=== PATIENT | female | born 1985 | race Caucasian/White ===

== ENCOUNTER 2020-02-14 09:14 | Emergency (ER) | payer MEDICARE, MEDICAID, SELFPAY ==
[2020-02-14 09:41] VITALS: BP 103/56; PULSE 85; RESP 18; TEMP 36.7; O2SAT 98; BMI 27.4
--- NOTE | 2020-02-14 10:16 | ED_ITS ---
HPI - URI/Sore Throat General Chief Complaint: Ear Problems Stated Complaint: fever,sinus pain and ear pain Time Seen by Provider: 02/14/20 10:06 Source: patient Mode of arrival: ambulatory History of Present Illness HPI Narrative: 34-year-old Female with no significant past medical history presenting to the ED complaining of low-grade temperature 99.9? last night with left-sided ear pain, sinus pressure, myalgias and sore throat. Admits was tested for COVID-19 on January 10 and negative. Denies cough, chills, CP/SOB, abdominal pain, diarrhea, recent travel, sick contacts, hearing loss or drainage from your MD elicited complaint: fever, sore throat and sinus pain Related Data Allergies Allergy/AdvReac Type Severity Reaction Status Date / Time amoxicillin Allergy Anaphylaxis Verified 02/14/20 09:44 Penicillins Allergy Anaphylaxis Verified 02/14/20 09:44 Review of Systems Review of Systems: Constitutional: No Weight loss, + Fever, No Chills ENT/Mouth: + Ear Pain, + Nasal Congestion, + Sinus Pain, No Hoarseness, +No sore throat, No Rhinorrhea, No Swallowing Difficulty Cardiovascular: No Chest Pain, No SOB Respiratory: No Cough, No Sputum, No Wheezing Gastrointestinal: No Nausea, No Vomiting, No Diarrhea, No Constipation, No Abdominal pain Musculoskeletal: No joint pain, + Myalgias, No Joint Swelling Skin: No Skin Lesions, No rash Yes all other systems are reviewed and are negative [facility] Past Medical History Attestation statement: The following information was validated with the patient. Medical History (Updated 02/14/20 @ 10:15 by FAMILIA Jean) No known health problems No known health problems Social History Social History Advance Directives: No Advance Directives Information Provided: No Physical Exam Vital Signs: Vital Signs: Last Vital Signs Temp 98.1 F 02/14/20 09:41 Pulse 85 02/14/20 09:41 Resp 18 02/14/20 09:41 BP 103/56 L 02/14/20 09:41 Pulse Ox 98 02/14/20 09:41 Body Mass Index 27.4 Const: General: cooperative and healthy appearing Orientation/consciousness: patient oriented x3 Limitations: no limitations HENMT: Head: Yes normal to inspection and Yes normocephalic Ears: hearing grossly normal bilaterally, external ears normal, TM's normal bilaterally and mastoids normal General nose exam: Normal external nose present and Normal nares present Face and sinus: Yes normal facial exam and Yes sinuses nontender Mouth: Normal oral and palatal mucosa present and tongue normal Throat: Yes posterior oropharynx normal, Yes tonsils normal and Yes uvula midline Eyes: General: appearance normal, both eyes and all related structures EOM: EOMs intact bilaterally Neck: Neck: Yes normal visual inspection and Yes no meningeal signs Resp: Effort & Inspection: normal respiratory effort, no stridor and not tachypneic Cardio: Rate: regular rate GI: Inspection: Yes normal to inspection Skin: Rashes: no rashes Wounds: no wounds Neuro: General: patient oriented x3 and no meningeal signs Gait exam (Neuro): Normal gait present Extrem: General: Yes normal to inspection MDM - URI/Sore Throat MDM Narrative Medical decision making narrative: On exam VSS, NAD/well-appearing, nontoxic, afebrile, likely viral syndrome. No evidence of active otitis media/otitis externa at present Discharge Plan Discharge Clinical Impression: Viral syndrome Patient Disposition: Home, Self-Care Instructions: Viral Syndrome (ED) Additional Instructions: Based on your symptoms and history we have sent a COVID-19. Although your RESULT IS PENDING at this time. RESULTS should return within 2-7 days. At this time you will be contacted with either NEGATIVE OR POSITIVE results. -Please wait until we contact you for your results. At this time you will be okay for discharge. Please plan for self quarantine for up to 14 days. Do not expose yourself to others. You may not go to work. If testing does come back negative you may return to activities as long as you are no longer having any symptoms for at least 3 days. Please continue to follow cold instructions and wash your hands frequently. You may take Tylenol as directed on the bottle for pain or fever. Patient seen in the emergency department on 08/03/2019 and should be excused from work until negative test results AND until 72 hours without any symptoms AND at least 10 days have passed since symptoms first appeared or since last exposure to COVID-19 positive patient CDC Guidelines for home isolation: - Stay away from others - WEAR A MASK if you are sick AND STAY HOME - Cover your mouth and nose with a tissue when you cough or sneeze. Dispose of tissues in a lined trash can and wash your hands immediately with soap and water for at least 20 seconds. If soap and water are not available, clean hands with alcohol-based hand consignee that contains at least 60% alcohol. - Clean your hands often with soap and water for at least 20 seconds - Avoid touching your eyes, nose and mouth with unwashed hands - Do not share dishes, drinking glasses, cups, eating utensils, towels, or bedding with other people in your home. After using these items, wash them thoroughly with soap and water or put in the programmer operator numerical control. - Clean high-touch surfaces in your isolation area ( sick room and bathroom) every day; let a caregiver clean and disinfect high-touch surfaces in other areas of the home. Clean the area or item with soap and water or another detergent if it is dirty. Then, use a household disinfectant. - Limit contact with pets and animals: If you must care for a pet, wash your hands before and after interacting with them) If her ear pain persists or worsens, developed hearing loss, or drainage from the ear return to the ED. Follow-up with primary care doctor. Take Tylenol Motrin at home. Stay hydrated Referrals: Physician,None [Primary Care Provider] - 2 days Stand Alone Forms: Work/School Release
== END 2020-02-14 10:29 | disposition home or self-care (01) ==
PROVIDERS: Physician Assistant; Emergency Provider Emergency Medicine Emergency Medical Services
DX: B34.9 Viral infection, unspecified (principal); Z20.828 Contact with and (suspected) exposure to other viral communicable diseases; J02.9 Acute pharyngitis, unspecified
CPT/HCPCS: 36415; 99283; U0003

== ENCOUNTER 2020-03-07 13:59 | Emergency (ER) | payer MEDICARE, MEDICAID, SELFPAY ==
[2020-03-07 15:12] VITALS: BP 139/66; PULSE 86; RESP 18; TEMP 35.9; O2SAT 99; BMI 26.6
--- NOTE | 2020-03-07 15:50 | ED.GENADULT ---
HPI - General Adult General Chief complaint: General Medical Stated complaint: med refill Time Seen by Provider: 03/07/20 15:42 Source: patient Mode of arrival: ambulatory Limitations: no limitations History of Present Illness HPI narrative: requesting refill of trazodone, duloxetine, depakote has Rx with her - has outpatient appointment set up in future, had issue with insurance when she moved here, has been taking medications but she is about to run out. complaint: medication refill Onset (ago): day(s) (1) Radiation: non-radiation Severity: mild Relieving factors: none Exacerbating factors: none Associated symptoms: denies other symptoms Treatments prior to arrival: none Related Data Previous Rx's Medication Instructions Recorded divalproex 500 mg PO BID #60 tab 03/07/20 duloxetine 30 mg PO BID #60 cap 03/07/20 trazodone 50 mg PO BEDTIME #30 tab 03/07/20 Allergies Allergy/AdvReac Type Severity Reaction Status Date / Time amoxicillin Allergy Anaphylaxis Verified 02/14/20 09:44 Penicillins Allergy Anaphylaxis Verified 02/14/20 09:44 Review of Systems Review of Systems: Constitutional :No Fever, No Chills Cardiovascular : No Chest Pain, No SOB Respiratory : No Cough Gastrointestinal : No Nausea, No Vomiting Genitourinary : No Dysuria Neuro : No Weakness, No Numbness, No Dizziness, No Headache Psych : No Anxiety/Panic, No Depression All other systems reviewed and are negative [facility] Past Medical History Attestation statement: The following information was validated with the patient. Medical History (Updated 03/07/20 @ 15:56 by Justina Buenrostro DO) Depression No known health problems No known health problems Social History Social History (Updated 03/07/20 @ 15:56 by Justina Buenrostro DO) Use of substances other than those prescribed or required for medical reasons: No Advance Directives: No Advance Directives Information Provided: No Physical Exam Vital Signs: Vital Signs: Last Vital Signs Temp 96.7 F L 03/07/20 15:12 Pulse 86 03/07/20 15:12 Resp 18 03/07/20 15:12 BP 139/66 03/07/20 15:12 Pulse Ox 99 03/07/20 15:12 Body Mass Index 26.6 Appearance: Alert. Oriented X3. No acute distress. Eyes: Pupils equal, round and reactive to light. ENT: Pharynx normal. Neck: Normal inspection. Neck supple. Skin: Skin warm and dry. Normal skin color. Normal skin turgor. Extremities: No lower extremity edema. No calf ttp Neuro: Oriented X 3. No motor deficit. No sensory deficit. Medical Decision Making MDM Narrative Medical decision making narrative: requesting refills - had insurance issue that is resolved but pending new provider - has Rx with her requesting trazodone, depakote, duloxetine, has medications until tonight - no other complaints, refills put in for 30 days Discharge Plan Discharge Clinical Impression: Medication refill Patient Disposition: Home, Self-Care Instructions: Medicine Refill (ED) Additional Instructions: return to ED for any worsening symptoms or concerns please follow up with your outside provider Prescriptions: New trazodone 50 mg tablet 50 mg PO BEDTIME Qty: 30 RF: 0 divalproex 500 mg tablet,delayed release (DR/EC) 500 mg PO BID Qty: 60 RF: 0 duloxetine 30 mg capsule,delayed release(DR/EC) 30 mg PO BID Qty: 60 RF: 0
== END 2020-03-07 15:59 | disposition home or self-care (01) ==
PROVIDERS: Emergency Provider Emergency Medicine
DX: Z76.0 Encounter for issue of repeat prescription (principal); Z79.899 Other long term (current) drug therapy
CPT/HCPCS: 99283

== ENCOUNTER 2020-04-15 15:36 | Emergency (ER) | payer MEDICARE, MEDICAID, SELFPAY ==
--- NOTE | 2020-04-15 15:46 | PC.NURSE ---
x1 call for triage, no answer
[2020-04-15 15:55] VITALS: BP 139/78; PULSE 87; RESP 16; TEMP 37.1; O2SAT 99; BMI 26.4
--- NOTE | 2020-04-15 16:04 | PC.NURSE ---
CALLED TO [facility], PT OUTSIDE SMOKING AT PRESENT TIME PER FIRST NURSE
--- NOTE | 2020-04-15 16:05 | PC.NURSE ---
Unable to locate PT. not in waiting room, bathroom, or outside ED.
== END 2020-04-15 16:23 | disposition left against medical advice (07) ==
PROVIDERS: Emergency Provider Emergency Medicine; PCP Nurse Practitioner Family
DX: R20.0 Anesthesia of skin (principal)
CPT/HCPCS: 99282